=== PATIENT | male | born 1945 | race African-American/Black ===

== ENCOUNTER 2020-05-05 11:04 | Inpatient (IN) | payer MEDICARE, OTHER ==
[~2020-05-05] VITALS: Ht 190.5 cm; Wt 84.8 kg
[~2020-05-05 11:04] MED LIST: ASPI-1497 PO; CARV25TA47 PO; METF-815 PO; RAMI10CA68 PO; SIMV-46 PO
[2020-05-05] MEDS ORDERED: SODIUM CHLORIDE 0.9% 1,000 ML IV ONE (11:48)
[2020-05-05 12:22] LABS: BASOPHILS % 0.9 % (0.0-2.0); EOSINOPHILS % 2.8 % (0.0-5.0); HEMATOCRIT. 32.6 % (42.0-52.0); HEMOGLOBIN. 11.1 g/dL (14.0-18.0); LYMPHOCYTES % 12.9 % (20.0-50.0); MEAN CORPUSCULAR HEMOGLOBIN 31.6 pg (28.0-32.0); MEAN CORPUSCULAR VOLUME 92.4 fL (80.0-94.0); MEAN PLATELET VOLUME 7.8 fl (7.4-10.4); MONOCYTES % 9.3 % (2.0-8.0); NEUTROPHILS % 74.1 % (40.0-76.0); PLATELET 238 x1000/uL (130-400); RED BLOOD CELL COUNT 3.53 mill/uL (4.7-6.1); RED CELL DISTRIBUTION WIDTH 14.6 % (11.6-14.6)
[2020-05-05 12:23] LABS: CHLORIDE 112 mEq/L (98-107)
[2020-05-05] MEDS ORDERED: LORAZEPAM 2MG/ML CPJ IV ONE (15:45)
[2020-05-05 21:28] LABS: CLARITY URINE CLEAR (CLEAR); COLOR URINE YELLOW (YELLOW); KETONES URINE NEGATIVE (NEGATIVE); LEUKOCYTE ESTERASE URINE NEGATIVE (NEGATIVE); NITRITE URINE NEGATIVE (NEGATIVE); OCCULT BLOOD URINE NEGATIVE (NEGATIVE); PROTEIN URINE NEGATIVE (NEGATIVE); UROBILINOGEN URINE 0.2 E.U./dL (0.2-1.0)
[2020-05-05 23:00] VITALS: BP 151/69
[2020-05-06 00:01] VITALS: BP 115/75
[2020-05-06] MEDS ORDERED: DIATR MEGLU/DIATRIZOATE SOLN 30ML PO SCH ×2 (00:30)
[2020-05-06 04:00] VITALS: BP 143/71
[2020-05-06] MEDS: DEXT 5%/0.45% NACL 1000ML 1,000 ML IV SCH ×2 (06:23→15:27)
[2020-05-06] MEDS ORDERED: DIATR MEGLU/DIATRIZOATE SOLN 30ML ONE (06:24)
[2020-05-06 08:00] VITALS: BP 117/78
[2020-05-06] MEDS ORDERED: BENAZEPRIL 10MG TABLET PO SCH (08:00)
[2020-05-06] MEDS ORDERED: ASPIRIN 81MG TABLET PO SCH (09:00)
[2020-05-06] MEDS: LORAZEPAM 2MG/ML CPJ IV PRN ×2 (10:22→22:01)
[2020-05-06] MEDS: CARVEDILOL 12.5MG TABLET PO SCH ×2 (10:23→21:00)
[2020-05-06] MEDS ORDERED: IOHEXOL-300 100 ML BOTTLE ONE (11:06)
[2020-05-06 12:00] VITALS: BP 131/65
[2020-05-06 16:00] VITALS: BP 128/63
[2020-05-06 20:32] VITALS: BP 130/73
[2020-05-06] MEDS ORDERED: DOCUSATE SODIUM 250MG CAPSULE PO SCH (21:00)
[2020-05-07] MEDS: DEXT 5%/0.45% NACL 1000ML 1,000 ML IV SCH ×3 (00:03→21:45)
[2020-05-07 00:47] VITALS: BP 127/70
[2020-05-07 04:00] VITALS: BP 135/71
[2020-05-07 07:05] LABS: PROSTRATE SPECIFIC AG TOTAL 0.01 ng/mL (0.0-4.0)
[2020-05-07 08:38] VITALS: BP 121/68
[2020-05-07] MEDS ORDERED: NA PHOS,M-B/NA PHOS,DI-BA ENEMA 118ML PR NR (09:30)
[2020-05-07 09:47] LABS: CHLORIDE 110 mEq/L (98-107)
[2020-05-07] MEDS: CARVEDILOL 12.5MG TABLET PO SCH ×2 (10:20→20:48)
[2020-05-07 12:34] VITALS: BP 149/74
[2020-05-07] MEDS ORDERED: LACTULOSE 20G/30ML UDC PO SCH (14:00)
[2020-05-07] MEDS ORDERED: SORBITOL 70% SOLN 30ML PO NR ×2 (16:00→20:00)
[2020-05-07 16:20] VITALS: BP 150/74
[2020-05-07 20:00] VITALS: BP 130/62
[2020-05-08] VITALS (10 sets, daily range): BP systolic 114–160; BP diastolic 64–77
[2020-05-08] MEDS: DEXT 5%/0.45% NACL 1000ML 1,000 ML IV SCH ×3 (02:18→21:02)
[2020-05-08 08:32] LABS: BASOPHILS % 0.7 % (0.0-2.0); EOSINOPHILS % 2.7 % (0.0-5.0); HEMATOCRIT. 31.9 % (42.0-52.0); HEMOGLOBIN. 10.8 g/dL (14.0-18.0); LYMPHOCYTES % 14.8 % (20.0-50.0); MEAN CORPUSCULAR HEMOGLOBIN 31.3 pg (28.0-32.0); MEAN CORPUSCULAR VOLUME 92.4 fL (80.0-94.0); MEAN PLATELET VOLUME 8.1 fl (7.4-10.4); MONOCYTES % 8.4 % (2.0-8.0); NEUTROPHILS % 73.4 % (40.0-76.0); PLATELET 205 x1000/uL (130-400); RED BLOOD CELL COUNT 3.46 mill/uL (4.7-6.1); RED CELL DISTRIBUTION WIDTH 14.7 % (11.6-14.6)
[2020-05-08 08:42] LABS: CHLORIDE 112 mEq/L (98-107)
[2020-05-08 08:49] LABS: INR 1.1; PARTIAL THROMBOPLASTIN TIME 31.5 sec (23.4-31.0); PROTHROMBIN TIME 11.4 sec (9.6-11.0)
[2020-05-08] MEDS: CARVEDILOL 12.5MG TABLET PO SCH ×2 (10:51→20:55)
[2020-05-08] MEDS ORDERED: SORBITOL 70% SOLN 30ML PO NR (11:00)
[2020-05-08] MEDS ORDERED: MIDAZOLAM HCL 5 MG/5 ML VIAL ONE (16:27)
[2020-05-08] MEDS ORDERED: FENTANYL CITRATE/PF 50MCG/ML 2ML VIAL ONE (16:28)
[2020-05-08] MEDS ORDERED: MIDAZOLAM HCL 5 MG/5 ML VIAL IV PRN (16:34)
[2020-05-08 20:20] LABS: FOLIC ACID (FOLATE) SERUM >20 ng/mL ng/mL (>5.38)
[2020-05-08 20:24] LABS: VITAMIN B12 SERUM 1110 pg/mL (211-911)
[2020-05-08 21:13] LABS: ETHANOL BLOOD < 10 mg/dL
[2020-05-08 21:19] LABS: T4 FREE 1.29 ng/dL (0.76-1.46)
[2020-05-09] VITALS: BP 109/67
[2020-05-09 04:00] VITALS: BP 132/81
[2020-05-09 06:20] LABS: *AMPHETAMINES SCREEN URINE NEGATIVE (NEGATIVE); *BARBITURATES SCREEN URINE NEGATIVE (NEGATIVE); *BENZODIAZEPINES SCREEN URINE PRESUMTIVE POSITIVE (NEGATIVE); *COCAINE SCREEN URINE NEGATIVE (NEGATIVE)
[2020-05-09 06:21] LABS: CANNABINOID URINE SCREEN NEGATIVE (NEGATIVE); METHADONE URINE SCREEN NEGATIVE (NEGATIVE); OPIATES URINE SCREEN NEGATIVE (NEGATIVE); PHENCYCLIDINE URINE SCREEN NEGATIVE (NEGATIVE)
[2020-05-09 08:00] VITALS: BP 126/57
[2020-05-09] MEDS: CARVEDILOL 12.5MG TABLET PO SCH ×2 (09:02→20:33)
[2020-05-09 11:23] LABS: CHLORIDE 113 mEq/L (98-107)
[2020-05-09 11:29] LABS: BASOPHILS % 1.1 % (0.0-2.0); EOSINOPHILS % 2.6 % (0.0-5.0); HEMATOCRIT. 31.4 % (42.0-52.0); HEMOGLOBIN. 10.6 g/dL (14.0-18.0); LYMPHOCYTES % 13.6 % (20.0-50.0); MEAN CORPUSCULAR HEMOGLOBIN 31.2 pg (28.0-32.0); MEAN CORPUSCULAR VOLUME 92.4 fL (80.0-94.0); MEAN PLATELET VOLUME 8.6 fl (7.4-10.4); NEUTROPHILS % 73.7 % (40.0-76.0); PLATELET 198 x1000/uL (130-400); RED CELL DISTRIBUTION WIDTH 14.3 % (11.6-14.6)
[2020-05-09 11:32] LABS: CREATINE KINASE 199 IU/L (39-308)
[2020-05-09 12:00] VITALS: BP 145/78
[2020-05-09 16:00] VITALS: BP 136/70
[2020-05-09] MEDS: DEXT 5%/0.45% NACL 1000ML 1,000 ML IV SCH ×2 (18:24→23:45)
[2020-05-09 20:25] VITALS: BP 160/68
[2020-05-10 00:33] VITALS: BP 152/65
[2020-05-10 04:00] VITALS: BP 161/62
[2020-05-10] MEDS: DEXT 5%/0.45% NACL 1000ML 1,000 ML IV SCH ×2 (04:40→21:39)
[2020-05-10 08:00] VITALS: BP 109/79
[2020-05-10] MEDS: CARVEDILOL 12.5MG TABLET PO SCH ×2 (08:56→21:38)
[2020-05-10 10:25] LABS: CHLORIDE 115 mEq/L (98-107)
[2020-05-10 10:38] LABS: BASOPHILS % 0.7 % (0.0-2.0); EOSINOPHILS % 2.3 % (0.0-5.0); HEMATOCRIT. 32.5 % (42.0-52.0); HEMOGLOBIN. 10.8 g/dL (14.0-18.0); LYMPHOCYTES % 14.6 % (20.0-50.0); MEAN PLATELET VOLUME 8.3 fl (7.4-10.4); NEUTROPHILS % 75.4 % (40.0-76.0); PLATELET 207 x1000/uL (130-400); RED BLOOD CELL COUNT 3.49 mill/uL (4.7-6.1); RED CELL DISTRIBUTION WIDTH 14.3 % (11.6-14.6)
[2020-05-10 12:00] VITALS: BP 152/84
[2020-05-10] MEDS ORDERED: LORAZEPAM 2MG/ML CPJ IV PRN (13:00)
[2020-05-10] MEDS: LORAZEPAM 2MG/ML CPJ IV PRN (13:51)
[2020-05-10 16:00] VITALS: BP 133/77
[2020-05-10 20:54] VITALS: BP 141/78
[2020-05-11] MEDS: LORAZEPAM 2MG/ML CPJ IV PRN (00:25)
[2020-05-11 00:26] VITALS: BP 150/73
[2020-05-11 04:45] VITALS: BP 123/48
[2020-05-11] MEDS: DEXT 5%/0.45% NACL 1000ML 1,000 ML IV SCH (05:33)
[2020-05-11 06:13] LABS: CHLORIDE 113 mEq/L (98-107)
[2020-05-11 06:16] LABS: BASOPHILS % 0.6 % (0.0-2.0); EOSINOPHILS % 3.2 % (0.0-5.0); HEMATOCRIT. 30.8 % (42.0-52.0); HEMOGLOBIN. 10.7 g/dL (14.0-18.0); LYMPHOCYTES % 17.8 % (20.0-50.0); MEAN CORPUSCULAR HEMOGLOBIN 31.9 pg (28.0-32.0); MEAN CORPUSCULAR VOLUME 91.8 fL (80.0-94.0); MEAN PLATELET VOLUME 8.2 fl (7.4-10.4); MONOCYTES % 9.8 % (2.0-8.0); NEUTROPHILS % 68.6 % (40.0-76.0); PLATELET 190 x1000/uL (130-400); RED BLOOD CELL COUNT 3.35 mill/uL (4.7-6.1)
[2020-05-11 08:07] VITALS: BP 153/74
[2020-05-11] MEDS: CARVEDILOL 12.5MG TABLET PO SCH ×3 (10:32→21:08)
[2020-05-11 12:10] VITALS: BP 106/72
[2020-05-11] MEDS ORDERED: IOHEXOL-350 100 ML BOTTLE ONE ×2 (15:18→23:16)
[2020-05-11 16:13] VITALS: BP 110/64
[2020-05-11] MEDS ORDERED: LORAZEPAM 2MG/ML CPJ IV NR (19:30)
[2020-05-11 20:04] VITALS: BP 129/68
[2020-05-12 00:29] VITALS: BP 143/78
[2020-05-12] MEDS: DEXT 5%/0.45% NACL 1000ML 1,000 ML IV SCH ×2 (03:40→21:22)
[2020-05-12 04:00] VITALS: BP 115/73
[2020-05-12 06:17] LABS: BASOPHILS % 0.8 % (0.0-2.0); EOSINOPHILS % 4.4 % (0.0-5.0); HEMATOCRIT. 31.8 % (42.0-52.0); HEMOGLOBIN. 10.9 g/dL (14.0-18.0); LYMPHOCYTES % 17.2 % (20.0-50.0); MEAN CORPUSCULAR HEMOGLOBIN 31.3 pg (28.0-32.0); MEAN CORPUSCULAR VOLUME 91.3 fL (80.0-94.0); MEAN PLATELET VOLUME 7.9 fl (7.4-10.4); NEUTROPHILS % 66.6 % (40.0-76.0); PLATELET 209 x1000/uL (130-400); RED BLOOD CELL COUNT 3.49 mill/uL (4.7-6.1); RED CELL DISTRIBUTION WIDTH 14.1 % (11.6-14.6)
[2020-05-12 06:33] LABS: CHLORIDE 111 mEq/L (98-107)
[2020-05-12 08:20] VITALS: BP 156/81
[2020-05-12] MEDS: CARVEDILOL 12.5MG TABLET PO SCH ×2 (09:26→20:59)
[2020-05-12 12:16] VITALS: BP 131/76
[2020-05-12 16:08] VITALS: BP 151/70
[2020-05-12 20:26] VITALS: BP 141/60
[2020-05-13] VITALS (14 sets, daily range): BP systolic 123–154; BP diastolic 65–92
[2020-05-13 01:46] LABS: PARTIAL THROMBOPLASTIN TIME 28.5 sec (23.4-31.0)
[2020-05-13] MEDS ORDERED: LORAZEPAM 2MG/ML CPJ IV NR ×2 (06:30→08:00)
[2020-05-13 06:55] LABS: PARTIAL THROMBOPLASTIN TIME 29.9 sec (23.4-31.0)
[2020-05-13 07:22] LABS: BASOPHILS % 0.8 % (0.0-2.0); EOSINOPHILS % 4.2 % (0.0-5.0); HEMATOCRIT. 32.2 % (42.0-52.0); LYMPHOCYTES % 25.1 % (20.0-50.0); MEAN CORPUSCULAR HEMOGLOBIN 31.3 pg (28.0-32.0); MEAN CORPUSCULAR VOLUME 91.4 fL (80.0-94.0); MEAN PLATELET VOLUME 8.7 fl (7.4-10.4); MONOCYTES % 11.3 % (2.0-8.0); NEUTROPHILS % 58.6 % (40.0-76.0); PLATELET 210 x1000/uL (130-400); RED BLOOD CELL COUNT 3.52 mill/uL (4.7-6.1); RED CELL DISTRIBUTION WIDTH 14.1 % (11.6-14.6)
[2020-05-13 08:07] LABS: CHLORIDE 108 mEq/L (98-107)
[2020-05-13] MEDS: CARVEDILOL 12.5MG TABLET PO SCH ×2 (09:00→21:31)
[2020-05-13] MEDS ORDERED: LIDOCAINE HCL 1% 20ML VIAL (Pyxis) INJ ONE (12:56)
[2020-05-13] MEDS ORDERED: SODIUM BICARBONATE 4% (2.4MEQ) 5ML VIAL IV ONE (12:56)
[2020-05-13] MEDS ORDERED: FENTANYL CITRATE/PF 50MCG/ML 2ML VIAL ONE (12:56)
[2020-05-13] MEDS: DEXT 5%/0.45% NACL 1000ML 1,000 ML IV SCH (16:07)
[2020-05-14] VITALS (8 sets, daily range): BP systolic 108–150; BP diastolic 62–81
[2020-05-14 07:41] LABS: BASOPHILS % 0.9 % (0.0-2.0); EOSINOPHILS % 2.3 % (0.0-5.0); HEMATOCRIT. 30.8 % (42.0-52.0); HEMOGLOBIN. 10.7 g/dL (14.0-18.0); LYMPHOCYTES % 12.2 % (20.0-50.0); MEAN CORPUSCULAR HEMOGLOBIN 31.4 pg (28.0-32.0); MEAN CORPUSCULAR VOLUME 90.5 fL (80.0-94.0); MEAN PLATELET VOLUME 8.7 fl (7.4-10.4); MONOCYTES % 9.4 % (2.0-8.0); NEUTROPHILS % 75.2 % (40.0-76.0); PLATELET 230 x1000/uL (130-400); RED CELL DISTRIBUTION WIDTH 14.1 % (11.6-14.6)
[2020-05-14 08:00] LABS: CHLORIDE 109 mEq/L (98-107)
[2020-05-14] MEDS: DEXT 5%/0.45% NACL 1000ML 1,000 ML IV SCH (08:06)
[2020-05-14] MEDS: CARVEDILOL 12.5MG TABLET PO SCH (09:26)
== END 2020-05-14 20:30 | DRG 180 ==
LOC: ER 11:04 → 6WST 16:24 → ENRESERV 20:30
PROVIDERS: ADMIT Internal Medicine; ATTEND Internal Medicine
PROC: 4B02XTZ Measurement of Cardiac Defibrillator, External Approach (ICD-10-PCS; 2020-05-07)
PROC: 0DBE8ZX Excision of Large Intestine, Via Natural or Artificial Opening Endoscopic, Diagnostic (ICD-10-PCS; principal; 2020-05-11)
PROC: 0BBG3ZX Excision of Left Upper Lung Lobe, Percutaneous Approach, Diagnostic (ICD-10-PCS; 2020-05-13)
DX: C78.02 Secondary malignant neoplasm of left lung (principal); G92 Toxic encephalopathy; C18.9 Malignant neoplasm of colon, unspecified; N17.9 Acute kidney failure, unspecified; C20 Malignant neoplasm of rectum; E46 Unspecified protein-calorie malnutrition; E87.2 Acidosis; I42.9 Cardiomyopathy, unspecified; I25.10 Atherosclerotic heart disease of native coronary artery without angina pectoris; I12.9 Hypertensive chronic kidney disease with stage 1 through stage 4 chronic kidney disease, or unspecified chronic kidney disease; F32.9 Major depressive disorder, single episode, unspecified; D64.9 Anemia, unspecified; E78.5 Hyperlipidemia, unspecified; C61 Malignant neoplasm of prostate; E66.9 Obesity, unspecified; N18.9 Chronic kidney disease, unspecified; E11.22 Type 2 diabetes mellitus with diabetic chronic kidney disease; N20.0 Calculus of kidney; R91.1 Solitary pulmonary nodule; E11.51 Type 2 diabetes mellitus with diabetic peripheral angiopathy without gangrene; Z20.828 Contact with and (suspected) exposure to other viral communicable diseases; F03.90 Unspecified dementia, unspecified severity, without behavioral disturbance, psychotic disturbance, mood disturbance, and anxiety; E86.0 Dehydration; G89.29 Other chronic pain; I34.0 Nonrheumatic mitral (valve) insufficiency; R29.6 Repeated falls; Z78.1 Physical restraint status; Z95.1 Presence of aortocoronary bypass graft; Z85.048 Personal history of other malignant neoplasm of rectum, rectosigmoid junction, and anus; Z85.46 Personal history of malignant neoplasm of prostate; Z86.73 Personal history of transient ischemic attack (TIA), and cerebral infarction without residual deficits; Z87.891 Personal history of nicotine dependence; Z90.49 Acquired absence of other specified parts of digestive tract; Z90.79 Acquired absence of other genital organ(s); Z91.19 Patient's noncompliance with other medical treatment and regimen; Z92.21 Personal history of antineoplastic chemotherapy; Z95.810 Presence of automatic (implantable) cardiac defibrillator; Z88.0 Allergy status to penicillin; Z79.82 Long term (current) use of aspirin; Z79.84 Long term (current) use of oral hypoglycemic drugs; Z79.899 Other long term (current) drug therapy; Z68.23 Body mass index [BMI] 23.0-23.9, adult
CPT/HCPCS: 32405; 36415; 70496; 71045; 71250; 74176; 77012; 80048; 80053; 80305; 80320; 81003; 82140; 82378; 82550; 82570; 82607; 82746; 83036; 83880; 84153; 84300; 84439; 84443; 84481; 84484; 85025; 85049; 88305; 92610; 93005; 93306; 93970; 99285; J2060; J2250; J3010; J3490; J7030; Q9963; Q9967; G0103; G0480; U0003-CS